=== PATIENT | male | born 1980 | race Caucasian/White ===

== ENCOUNTER 2017-11-29 00:56 | Emergency (ER) | payer OTHER ==
[2017-11-29 01:03] VITALS: BP 140/92; PULSE 101; RESP 16; O2SAT 97
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
[2017-11-29] MEDS ORDERED: SODIUM CHLORIDE 0.9% FLUSH 10 ML FLUSH IVF PRN (01:15)
[2017-11-29 01:19] VITALS: O2SAT 98
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
[2017-11-29 03:14] LABS: BICARBONATE 23.9 MEQ/L (21.0-32.0); CALCIUM 8.1 MG/DL (8.5-10.1); CREATININE 0.85 MG/DL (0.60-1.30)
== END 2017-11-29 06:39 ==
LOC: NEPE 00:56
DX: R56.9 Unspecified convulsions (principal); F10.129 Alcohol abuse with intoxication, unspecified; Y90.7 Blood alcohol level of 200-239 mg/100 ml
CPT/HCPCS: 70450; 80048; 80307; 99284